=== PATIENT | female | born 1940 | race Caucasian/White ===

== ENCOUNTER 2021-09-21 15:13 | Day surgery (SDCO) | payer OTHER ==
[~2021-09-21] VITALS: Ht 147.3 cm; Wt 65.1 kg
[~2021-09-21 15:13] MED LIST: GLIPIZIDE ER5 MG PO; LASIX40 MG PO; OS-CAL500 MG PO; PROZAC20 MG PO; UROCIT-K10 MEQ PO; XANAX0.5 MG PO; ZOCOR40 MG PO
[2021-09-21] MEDS ORDERED: ASPIRIN EC81 MG PO (16:15)
[2021-09-21] MEDS ORDERED: GLUCOTROL XL5 MG PO (16:16)
[2021-09-21] MEDS ORDERED: VITAMIN D3125 MC2 PO (16:16)
[2021-09-21] MEDS ORDERED: IRON18 MG PO (16:17)
[2021-09-21] MEDS ORDERED: FOSAMAX70 MG PO (16:18)
[2021-09-21 17:04] LABS: HCT 43.6 % (37.0-47.0); HGB 14.4 g/dl (12.5-16.0); MCH 30.1 pg (25.0-31.0); MPV 11.4 fL (6.0-9.5); RBC 4.79 M/uL (4.20-5.40); RDW 15.7 % (11.5-14.0); WBC 8.4 K/uL (4.0-10.5)
[2021-09-21 17:23] LABS: ALBUMIN 3.5 g/dL (3.4-5.0); BILIRUBIN - TOTAL 0.3 mg/dL (0.2-1.0); BUN/CREAT RATIO (CALC) 26.2 RATIO; CREATININE 1.03 mg/dL (0.51-0.95); POTASSIUM 4.5 mmol/L (3.5-5.1); TOTAL PROTEIN 6.5 g/dL (6.4-8.2)
--- NOTE | 2021-09-22 10:34 | NUR ---
PATIENT RETURNED FROM OR, AWAKE, ALERT. SITTING UP DRINKING CLEAR SODA. NO C/O VOICED, DENIES N/V OR WEAKNESS
--- NOTE | 2021-09-22 12:03 | NUR ---
09/22/21 Ms. Cary lives with her granddaughter, Carmelita Benito. She has a rw, wc, 3in1, s. chair, and lift chair. [facility], Pema Daniels, is the PCP. [facility] is current for nursing. - A referal was made to [facility] for OT/OT and safety evaluation.
== END 2021-09-22 14:11 | disposition home health service (06) ==
LOC: FMS 15:13 → FAS 09-22 09:00 → EDSTATUS 09-22 09:00 → FMS 09-22 09:00
PROVIDERS: ADMIT Surgery
DX: K57.30 Diverticulosis of large intestine without perforation or abscess without bleeding (principal); K43.6 Other and unspecified ventral hernia with obstruction, without gangrene; K82.8 Other specified diseases of gallbladder; E11.9 Type 2 diabetes mellitus without complications; F41.9 Anxiety disorder, unspecified; F32.A Depression, unspecified; F17.210 Nicotine dependence, cigarettes, uncomplicated; Z88.2 Allergy status to sulfonamides; Z91.018 Allergy to other foods; Z79.82 Long term (current) use of aspirin; Z79.84 Long term (current) use of oral hypoglycemic drugs; Z79.899 Other long term (current) drug therapy
CPT/HCPCS: 36415; 80053; G0378; J2704; J7120